=== PATIENT | male | born 1980 | race Caucasian/White ===

== ENCOUNTER → 2023-06-15 | Outpatient (CLI) | payer BC ==
--- NOTE | 2023-06-15 19:20 | XR ---
EXAMINATION TYPE: XR chest 2V DATE OF EXAM: 06/15/2023 COMPARISON: 09/05/2013 HISTORY: 43-year-old male complaining of wheezing, smoker, [id number] ACUTE BRONCHOSPASM TECHNIQUE: Frontal and lateral views FINDINGS: The cardiomediastinal silhouette, aorta, and pulmonary vasculature are within normal limits. There is a 1.2 cm nodule projecting at the periphery of the right mid to lower lung. Given patient's smoking history, further CT evaluation is recommended. Otherwise, lungs and pleural spaces are clear. IMPRESSION: A 1.2 cm nodule projecting at the right mid to lower lung. Unclear if this represents a high nipple s hadow versus underlying suspicious pulmonary nodule/early neoplasm. Given patient's smoking history, recommend further CT evaluation. Otherwise, no acute cardiopulmonary process.
== END | disposition home or self-care (01) ==
LOC: RADXRYALE 13:13
PROVIDERS: ATTEND Internal Medicine
DX: R91.1 Solitary pulmonary nodule (principal); J98.01 Acute bronchospasm; Z87.891 Personal history of nicotine dependence
CPT/HCPCS: 71046

== ENCOUNTER → 2023-07-02 | Outpatient (CLI) | payer BC ==
--- NOTE | 2023-07-04 09:42 | CT ---
EXAMINATION TYPE: CT chest w con CT DLP: 562.4 mGycm, Automated exposure control for dose reduction was used. DATE OF EXAM: 07/02/2023 5:21 PM COMPARISON: Chest radiograph 06/15/2023 CLINICAL INDICATION:Male, 43 years old with history of R91.1 Pulmonary nodule; PHH, lung nodule TECHNIQUE: Multiple axial images were obtained through the chest. Sagittal and coronal reformats were created for review. Contrast used:100 mL of Isovue 300 with IV Contrast (None if empty) Oral contrast used: (None if empty) FINDINGS: LUNGS/ PLEURA: Solid 1.1 cm right lower lung pulmonary nodule. No additional pulmonary nodules are ap preciated. No evidence of pleural effusion. AIRWAY: Patent and unremarkable. HEART: Size within normal limits. MEDIASTINUM: Prominent but not enlarged pretracheal lymph node. VASCULATURE: No aortic aneurysm. MUSCULOSKELETAL: No acute osseous abnormalities SOFT TISSUES/LYMPH NODES: Unremarkable. LOWER NECK: No significant findings. UPPER ABDOMEN: No significant findings. IMPRESSION: Solitary solid 1.1 cm right lower lobe lung nodule. Further evaluation is recommended with dedicated PET/CT vs. tissue sampling per Fleischner criteria.
== END | disposition home or self-care (01) ==
LOC: RADCTMAIN 16:49
PROVIDERS: ATTEND Internal Medicine
DX: R91.1 Solitary pulmonary nodule (principal)
CPT/HCPCS: 71260; Q9967

== ENCOUNTER → 2023-09-24 | Outpatient (CLI) | payer BC ==
--- NOTE | 2023-09-27 20:59 | PE ---
EXAMINATION TYPE: PET CT fusion skull to thigh DATE OF EXAM: 09/24/2023 CLINICAL INDICATION:Male, 43 years old with history of R91.1 SOLITARY PULMONARY NODULE; TECHNIQUE: Following the intravenous administration of 10.73 mCi of F-18 FDG, whole body images are performed from the skull base to the midthigh. Images are reviewed on the computer in the coronal, axial, and sagittal planes. Reconstructed rotating images are created on independent workstation and reviewed on the computer. A non-contrast CT is performed in conjunction with the PET scan. Glucose level 87 mg/dL CT DLP: 1015 mGycm, Automated exposure control for dose reduction was used. COMPARISON: CT 07/02/2023, PET/CT None, MRI: None FINDINGS: Mediastinal SUV mean is 2.3. Hepatic parenchyma SUV mean is 2.1. SKULL BASE AND NECK: No suspicious radiotracer activity. CHEST, MEDIASTINUM, AND HILAR REGION: * No suspicious radiotracer activity. * Right lower lobe superior segment nodule with FDG levels at background. Max SUV 1.5 measuring 12 m m. * ABDOMEN AND PELVIS: No suspicious radiotracer activity. MUSCULOSKELETAL STRUCTURES: No suspicious radiotracer activity. OTHER CT: Motion limits evaluation of the oropharynx and neck. Metallic foreign body within the right C7 mental region. Fat-containing inguinal hernias bilaterally. IMPRESSION: Right lower lobe superior segment 12 mm nodule with FDG levels at background levels. Surveillance wit h CT imaging recommended. Findings favor granulomatous change.
== END | disposition home or self-care (01) ==
LOC: RADXRMAIN 12:50
PROVIDERS: ATTEND Internal Medicine Critical Care Medicine
DX: R91.1 Solitary pulmonary nodule (principal)
CPT/HCPCS: 78815; A9552